=== PATIENT | female | born 1965 | race Caucasian/White ===

== ENCOUNTER 2018-01-10 14:42 | Outpatient (CLI) | payer BC | END 2018-01-10 14:43 | disposition home or self-care (01) | LOC: BICULT 14:42 | PROVIDERS: ATTEND Nurse Practitioner Acute Care | DX: I82.90 Acute embolism and thrombosis of unspecified vein (principal); C50.411 Malignant neoplasm of upper-outer quadrant of right female breast; R60.0 Localized edema; M79.601 Pain in right arm | CPT/HCPCS: 36415; 80053; 82248; 83615; 84100; 84550 ==

== ENCOUNTER 2018-06-14 11:17 | Outpatient (CLI) | payer BC ==
--- NOTE | 2018-06-14 12:25 | RAD ---
PA AND LATERAL CHEST: History: Pneumonia. FINDINGS: Comparison is made with the exam of 09-01-15. The heart size is normal. The lungs are well expanded without focal areas of consolidation, pneumotho races or pleural effusions. There are degenerative changes of the spine. IMPRESSION: No radiographic evidence of acute cardiopulmonary process. POS: [facility]
== END 2018-06-14 11:18 | disposition home or self-care (01) ==
LOC: RAD-FRANK 11:17
PROVIDERS: ATTEND Nurse Practitioner Family
DX: J18.9 Pneumonia, unspecified organism (principal)
CPT/HCPCS: 36415; 71046; 80053; 85025; 85379

== ENCOUNTER 2018-06-23 08:18 | Outpatient (CLI) | payer BC ==
--- NOTE | 2018-06-23 09:27 | CT ---
CT CHEST WITH CONTRAST: HISTORY: Cough. Upper respiratory infection. COMPARISON: Real-time from 06/14/2018. FINDINGS: The lungs are clear. No pneumothorax. No suspicious pulmonary nodule. No pleural effusion. The thyroid is unremarkable. No pericardial effusion. There is mild intrahepatic and extrahepatic biliary dilatation. The common bile duct, at the level o f the pancreatic head, measures 12 mm. No axillary adenopathy. Bilateral breast implants with calcified capsules. No suspicious osteolytic or osteoblastic lesions. No thoracic spine compression fracture. IMPRESSION: 1. No acute intrathoracic abnormality. 2. Mild intrahepatic and extrahepatic biliary dilatation, with common bile duct measuring 12 mm. If clinically warranted, follow-up magnetic resonance cholangiopancreatography recommended. This could reflect reservoir changes from prior cholecystectomy. POS: [facility]
[2018-06-23] MEDS ORDERED: ISOVUE-370 76%-LOCM 1 ML ONE (09:46)
== END 2018-06-23 08:19 | disposition home or self-care (01) ==
LOC: BICCT 08:18
PROVIDERS: ATTEND Nurse Practitioner Family
DX: R05 Cough (principal); J06.9 Acute upper respiratory infection, unspecified; R93.89 Abnormal findings on diagnostic imaging of other specified body structures; K83.9 Disease of biliary tract, unspecified; Z90.49 Acquired absence of other specified parts of digestive tract
CPT/HCPCS: 71260; Q9966

== ENCOUNTER 2018-07-20 14:16 | Outpatient (CLI) | payer BC ==
[~2018-07-20 14:16] MED LIST: Gadobenate Dimeglumine 529 MG/1 ML (20ML VIAL) ONE
--- NOTE | 2018-07-20 16:29 | MRI ---
MRI ABDOMEN WITH AND WITHOUT IV CONTRAST 07/20/18 HISTORY: Chronic constipation. Disorder of bile duct. Esophageal dysphagia, malignant tumor of breast. FINDINGS: The patient is post cholecystectomy. The common duct measures 1 mm in diameter in the pancreatic head . No filling defects are seen to suggest choledocholithiasis. The liver demonstrates diffuse loss of signal on the out of phase images consistent with fatty infilt ration. No hepatic mass is seen. The spleen, pancreas, adrenal glands and left kidney are normal. The re is a tiny cyst in the right kidney and scar in the inferior posterior right renal cortex. No free fluid or lymphadenopathy is noted in the abdomen. There is no evidence of aneurysmal dilatat ion of the abdominal aorta. The bone marrow signal is noted. There are bilateral breast implants. IMPRESSION: 1. Fatty liver. 2. Status post cholecystectomy with dilated common bile duct likely due to reservoir effect. No evidence of choledocholithiasis. 3. Tiny right cyst. POS: [facility]
== END 2018-07-20 14:17 | disposition home or self-care (01) ==
LOC: BICMRI 14:16
PROVIDERS: ATTEND Internal Medicine Gastroenterology
DX: K83.9 Disease of biliary tract, unspecified (principal); R13.19 Other dysphagia; K59.09 Other constipation; C50.919 Malignant neoplasm of unspecified site of unspecified female breast; K76.0 Fatty (change of) liver, not elsewhere classified; N28.1 Cyst of kidney, acquired; Z90.49 Acquired absence of other specified parts of digestive tract
CPT/HCPCS: 74183; 82565; A9577

== ENCOUNTER 2018-09-18 11:17 | Outpatient (CLI) | payer BC ==
--- NOTE | 2018-09-18 12:26 | RAD ---
CHEST TWO VIEWS: HISTORY: Cough. COMPARISON: 06/14/2018 FINDINGS: Heart size is normal. Lungs are clear. No pneumonia, edema, pleural effusion, or other acute proces s. IMPRESSION: 1. Unremarkable chest. 2. No evidence of pneumonia. 3. Stable appearance from prior study. POS: [facility]
== END 2018-09-18 11:18 | disposition home or self-care (01) ==
LOC: RAD-FRANK 11:17
PROVIDERS: ATTEND Nurse Practitioner Family
DX: R91.8 Other nonspecific abnormal finding of lung field (principal); R05 Cough; Z85.3 Personal history of malignant neoplasm of breast; Z87.01 Personal history of pneumonia (recurrent)
CPT/HCPCS: 71046

== ENCOUNTER 2018-11-13 10:27 | Outpatient (CLI) | payer BC ==
--- NOTE | 2018-11-13 12:18 | MRI ---
Exam: MRI cervical spine without contrast HISTORY: Degenerative disc disease.. COMPARISON: None FINDINGS: Appropriate T1 marrow signal intensity of the cervical vertebra. Cervical spine vertebral body heigh t is maintained. No fracture. Straightening of normal cervical lordosis is presumed to be positional. Visualized brain parenchyma, cervical medullary junction, cervical cord and the upper thoracic cord h ave a normal size and signal intensity C2-C3: No significant central canal stenosis or neural foraminal narrowing C3-C4: No significant central canal stenosis or neural foraminal narrowing C4-C5: No significant central canal stenosis. Mild right foraminal narrowing due to uncovertebral hyp ertrophy. Left neural foramen is patent. C5-C6: No significant central canal stenosis or neural foraminal narrowing C6-C7: Central/right paracentral disc osteophyte complex. Mass effect upon the right hemicord, withou t cord hyperintensity. Mild central canal stenosis. Mild bilateral neural foraminal narrowing due to uncovertebral hypertrophy C7-T1: No significant central canal stenosis or neural foraminal narrowing. IMPRESSION: Degenerative disc disease at C6-C7. There is mass effect upon the right hemicord. Mild central canal stenosis. No cord signal abnormality.
== END 2018-11-13 10:28 | disposition home or self-care (01) ==
LOC: TBSIIMAG 10:27
PROVIDERS: ATTEND Neurological Surgery
DX: M50.323 Other cervical disc degeneration at C6-C7 level (principal); M48.02 Spinal stenosis, cervical region
CPT/HCPCS: 72141

== ENCOUNTER 2019-01-03 12:01 | Outpatient (CLI) | payer BC ==
--- NOTE | 2019-01-03 14:15 | ULT ---
RENAL SONOGRAM: 01/03/19 HISTORY: Chronic renal disease. FINDINGS: On today's exam, the right kidney is 10.5 cm. Area of scarring and dystrophic calcification is presen t along the lateral margin of the lower cortex. Small echogenic foci with posterior shadowing are pre sent within nondilated calyces. Left kidney measures up to 10.2 cm, also with small stones scattered throughout nondilated calyces. N o hydronephrosis or solid mass. Urinary bladder is incompletely distended. IMPRESSION: Nonobstructing bilateral renal calculi. POS: [facility]
== END 2019-01-03 12:02 | disposition home or self-care (01) ==
LOC: BICULT 12:01
PROVIDERS: ATTEND Internal Medicine Nephrology
DX: I12.9 Hypertensive chronic kidney disease with stage 1 through stage 4 chronic kidney disease, or unspecified chronic kidney disease (principal); N18.2 Chronic kidney disease, stage 2 (mild); N20.0 Calculus of kidney; Z87.442 Personal history of urinary calculi
CPT/HCPCS: 76770

== ENCOUNTER 2019-02-23 08:38 | Outpatient (CLI) | payer BC ==
--- NOTE | 2019-02-23 09:01 | RAD ---
4 views of the cervical spine: 02/23/2019 COMPARISON: None available HISTORY: Cervical radiculopathy, prior cervical spine surgery FINDINGS: The open-mouth odontoid view demonstrates a normal-appearing dens and C1-2 articulation. Anterior discectomy and fusion hardware is present at C6-7. There is mild adjacent prevertebral soft tissue prominence. There is mild posterior osteophyte at C6-7. There is minimal anterolisthesis of C5 on C6 measuring 2-3 mm. IMPRESSION: Postoperative and degenerative changes within the cervical spine as described above.
== END 2019-02-23 08:39 | disposition home or self-care (01) ==
LOC: TBSIIMAG 08:38
PROVIDERS: ATTEND Neurological Surgery
DX: M47.22 Other spondylosis with radiculopathy, cervical region (principal); Z98.890 Other specified postprocedural states
CPT/HCPCS: 72040

== ENCOUNTER 2019-04-11 13:11 | Outpatient (CLI) | payer BC ==
--- NOTE | 2019-04-11 15:18 | RAD ---
CERVICAL SPINE SERIES 3 VIEWS: Date: 04/11/19 HISTORY: Follow-up surgery. COMPARISON: 02/23/19 study. FINDINGS: Anterior cervical fusion has been performed at the C6-7 level. The remainder of the vertebral bodies and disc spaces are well preserved. IMPRESSION: Stable postop change. POS: [facility]
== END 2019-04-11 13:12 | disposition home or self-care (01) ==
LOC: TBSIIMAG 13:11
PROVIDERS: ATTEND Neurological Surgery
DX: M50.30 Other cervical disc degeneration, unspecified cervical region (principal); Z98.1 Arthrodesis status
CPT/HCPCS: 72040

== ENCOUNTER 2019-05-07 11:58 | Outpatient (CLI) | payer BC ==
--- NOTE | 2019-05-07 13:28 | MRI ---
MRI brain with and without contrast: DATE: 05/07/2019 HISTORY: 53-year-old female with memory loss, headache, and dizziness. TECHNIQUE: Multiplanar, multisequence MRI of the brain obtained pre and post IV injection of gadolinium based co ntrast agent. FINDINGS: There is no obstructive hydrocephalus. There is no midline shift or any other evidence of mass effect . There is no extra-axial fluid collection. There are very mild chronic ischemic white matter changes due to microvascular atherosclerosis. There is otherwise no major intra-axial signal abnormal ity, abnormal enhancement, mass, recent hemorrhage, or restricted diffusion. IMPRESSION: 1) very mild chronic ischemic white matter changes. 2) otherwise negative
== END 2019-05-07 11:59 | disposition home or self-care (01) ==
LOC: SCSMRI 11:58
PROVIDERS: ATTEND Physician Assistant
DX: R41.3 Other amnesia (principal)
CPT/HCPCS: 70553

== ENCOUNTER 2019-05-14 11:22 | Outpatient (CLI) | payer BC ==
--- NOTE | 2019-05-14 14:47 | CT ---
CT ABDOMEN AND PELVIS PERFORMED WITHOUT CONTRAST ENHANCEMENT: Date: 05/14/2019 HISTORY: Right flank pain for 3 months, getting worse. History of lithotripsy, cholecystectomy, and hysterecto my. History of kidney stones. COMPARISON: 12/19/2016 exam. FINDINGS: Within the right lower anterior chest is asymmetric soft tissue density. I am not certain whether thi s is related to breast tissue or some type of subcutaneous mass such as hematoma. Clinical correlatio n is recommended. The lung bases are clear. The liver, spleen, and pancreas regions are unremarkable. Gallbladder has been removed. Right and left adrenal glands are normal. Punctate bilateral lower pole renal calculi are seen with t wo and possibly three tiny calculi on the right and one on the left. No obstruction. No ureteral calc merlyn are seen. No significant periaortic or mesenteric lymphadenopathy. CT of pelvis was performed without contrast enhancement. The appendix is normal. No evidence of adeno prabhakar, mass, or free fluid. IMPRESSION: 1. Increased soft tissue density in the subcutaneous tissue along the right inframammary region. I a m not certain whether this is related to breast tissue or some type of mass. Clinical correlation rec ommended. 2. Punctate nonobstructing bilateral renal calculi. 3. Post cholecystectomy change. 4. Normal appendix. POS: [facility]
== END 2019-05-14 11:23 | disposition home or self-care (01) ==
LOC: CT 11:22
PROVIDERS: ATTEND Urology
DX: N20.0 Calculus of kidney (principal); M79.89 Other specified soft tissue disorders; Z90.49 Acquired absence of other specified parts of digestive tract
CPT/HCPCS: 74176; 81001

== ENCOUNTER 2020-07-09 07:06 | Day surgery (SDC) | payer BC ==
[2020-07-07 14:50] VITALS: BMI 23.6
--- NOTE | 2020-07-09 09:27 | CT ---
Cervical myelogram CT cervical spine with intrathecal contrast HISTORY: Neck pain. Prior surgery. FINDINGS: After explaining the procedure and answering all questions, the lower back was prepped and draped in usual sterile fashion. Sterile technique, buffered local anesthesia, fluoroscopic guidance, and a left posterolateral L2-3 a pproach were used to carefully advance the tip of a 22-gauge spinal needle to the thecal sac. Approximately 8 cc of Isovue 300 and contrast was carefully instilled into the thecal sac under fluor oscopic control. Needle was removed and spot images obtained. Patient tolerated the procedure well and was transferred to CT in good condition for further imaging. There is gentle reversal of the normal kyphotic curvature of the lower cervical spine, apex at the po stoperative C5-6 level. No yoshi-hardware lucency evident. C1-2: Mild osteophytosis. Central canal and neural foramina are patent. C2-3: Mild osteophytosis. Central canal and neural foramina are patent. C3-4: Mild osteophytosis. Central canal and neural foramina are patent. C4-5: Mild osteophytosis. Central canal and neural foramina are patent. C5-6: Postoperative changes. Posterior osteophyte/disc complex slightly effaces the ventral aspect of the thecal sac and spinal cord, flattening spinal cord by approximately 30%. Contrast material/CSF remains behind the spinal cord. Mild bilateral foraminal stenosis. C6-7: Mild osteophytosis. Central canal and neural foramina are patent. C7-T1: Central canal and neural foramina are patent. IMPRESSION : Postoperative and significant degenerative changes limited to the C5-6 level, including mild/moderate compression of the spinal cord and central canal/foraminal stenoses. No evidence of hardware complication.
[2020-07-09 09:51] VITALS: BP 92/61; TEMP 99
[2020-07-09] MEDS ORDERED: Iopamidol-M 300 61% 15 ML VIAL ONE (14:19)
== END 2020-07-09 10:15 | disposition home or self-care (01) ==
LOC: RAD 07:06
PROVIDERS: ATTEND Neurological Surgery
PROC: B02B1ZZ Computerized Tomography (CT Scan) of Spinal Cord using Low Osmolar Contrast (ICD-10-PCS; principal; 2020-07-09)
DX: M50.022 Cervical disc disorder at C5-C6 level with myelopathy (principal); M48.02 Spinal stenosis, cervical region; E78.00 Pure hypercholesterolemia, unspecified; I10 Essential (primary) hypertension; F32.9 Major depressive disorder, single episode, unspecified; F41.9 Anxiety disorder, unspecified; G25.81 Restless legs syndrome; K21.9 Gastro-esophageal reflux disease without esophagitis; F17.210 Nicotine dependence, cigarettes, uncomplicated; Z85.3 Personal history of malignant neoplasm of breast; Z79.899 Other long term (current) drug therapy; Z98.1 Arthrodesis status
CPT/HCPCS: 62302; 72126; Q9967

== ENCOUNTER 2020-08-20 10:48 | Outpatient (CLI) | payer BC ==
[2020-08-20 11:08] LABS: Hemoglobin 9.5 g/dL (12.0-15.5); Mean Corpuscular HGB CONC 31.5 g/dL (32.0-36.0); Mean Corpuscular Hemoglobin 26.8 pg (27.0-33.0); Mean Corpuscular Volume 85.1 fl (81.6-98.3); Mean Platelet Volume 10.5 fl (7.4-10.4); Platelet Count 251 10x3/uL (150-450); Red Blood Cell (RBC) Count 3.55 10x6/uL (3.90-5.03); White Blood Cell (WBC) Count 6.4 10x3/uL (3.5-10.5)
[2020-08-20 11:35] LABS: Anion Gap 15 mmol/L (10-20); BUN (Urea Nitrogen) 41 mg/dL (9.8-20.1); Calc. Creatinine Clearance 0 mL/min (70-130); Calcium 9.4 mg/dL (7.8-10.44); Carbon Dioxide 28 mmol/L (22-29); Chloride 101 mmol/L (98-107); Glucose 79 mg/dL (70-105); Potassium 5.2 mmol/L (3.5-5.1); Sodium 139 mmol/L (136-145)
[2020-08-20 17:51] LABS: SARS-CoV-2 PCR by NAA Not Detected (NotDetected)
== END 2020-08-20 10:49 | disposition home or self-care (01) ==
LOC: LABBT 10:48
PROVIDERS: ATTEND Obstetrics & Gynecology
DX: Z01.818 Encounter for other preprocedural examination (principal); M54.12 Radiculopathy, cervical region; Z20.822 Contact with and (suspected) exposure to COVID-19
CPT/HCPCS: 80048; 85027; 87635; 93005; 93010; U0003; U0005

== ENCOUNTER 2020-08-21 16:55 | Outpatient (CLI) | payer BC ==
[2020-08-22 19:17] LABS: Anion Gap 15 mmol/L (10-20); BUN (Urea Nitrogen) 43 mg/dL (9.8-20.1); Calc. Creatinine Clearance 0 mL/min (70-130); Calcium 8.9 mg/dL (7.8-10.44); Carbon Dioxide 26 mmol/L (22-29); Chloride 102 mmol/L (98-107); Glucose 115 mg/dL (70-105); Sodium 138 mmol/L (136-145)
== END 2020-08-21 16:56 | disposition home or self-care (01) ==
LOC: LABBT 16:55
PROVIDERS: ATTEND Nurse Practitioner Family
DX: Z01.812 Encounter for preprocedural laboratory examination (principal); M54.12 Radiculopathy, cervical region
CPT/HCPCS: 80048

== ENCOUNTER 2020-08-25 06:11 | Observation (INO) | payer BC ==
[2020-08-21 13:52] VITALS: BMI 27.4
[2020-08-25] MEDS ORDERED: Midazolam HCl 2 mg/2 ml Vial ONE (07:40)
[2020-08-25] MEDS ORDERED: Fentanyl 100 MCG/2 ML VIAL ONE ×4 (08:19→11:57)
[2020-08-25] MEDS ORDERED: Glycopyrrolate 0.2 MG/ML 5 ML SYRINGE ONE (09:20)
[2020-08-25] MEDS ORDERED: Rocuronium Bromide 10 MG/ML (10ML VIAL) ONE (09:20)
[2020-08-25] MEDS ORDERED: PHENYLEPHRINE-NS 100 MCG/ML 10 ML SYRINGE ONE (09:20)
[2020-08-25] MEDS ORDERED: Ondansetron PF 4 MG/2 ML Vial ONE (09:20)
[2020-08-25] MEDS ORDERED: Dexamethasone 20 MG/5 ML VIAL ONE (09:20)
[2020-08-25] MEDS ORDERED: PROPOFOL 200 MG/20 ML VIAL ONE (09:20)
[2020-08-25] MEDS ORDERED: Lidocaine 1% PF 5 ML VIAL ONE (09:20)
[2020-08-25] MEDS ORDERED: Ondansetron HCl/PF 4 MG/2 ML Vial IVP PRN (09:49)
[2020-08-25] MEDS ORDERED: HYDROmorphone 2 MG/ML VIAL SLOW IVP PRN (09:49)
[2020-08-25] MEDS ORDERED: Promethazine HCl 25 MG/ML VIAL SLOW IVP PRN (09:49)
[2020-08-25] MEDS ORDERED: Promethazine HCl 25 MG/ML VIAL IM PRN ×2 (09:49→11:00)
[2020-08-25] MEDS ORDERED: SUGAMMADEX SODIUM 200 MG/2 ML VIAL ONE (09:56)
[2020-08-25] MEDS ORDERED: Morphine 2 MG/ML VIAL SLOW IVP PRN (11:00)
[2020-08-25] MEDS ORDERED: Milk Of Magnesia 30 ML UDCUP PO PRN (11:00)
[2020-08-25] MEDS ORDERED: diphenhydrAMINE 25 MG CAP PO PRN (11:00)
[2020-08-25] MEDS ORDERED: diphenhydrAMINE 50 MG/ML VIAL IVP PRN (11:00)
[2020-08-25] MEDS ORDERED: Promethazine 25 MG TAB PO PRN (11:00)
[2020-08-25] MEDS ORDERED: Ondansetron PF 4 MG/2 ML Vial IVP PRN (11:00)
[2020-08-25] MEDS ORDERED: tiZANidine HCl 4 MG TAB PO PRN (11:00)
[2020-08-25] MEDS ORDERED: Promethazine HCl 12.5 MG SUPP PR PRN (11:00)
[2020-08-25] MEDS ORDERED: Morphine 4 MG/ML VIAL SLOW IVP PRN (11:00)
[2020-08-25] MEDS ORDERED: HYDROcodone/Acetaminophen 10/325 mg Tablet PO PRN ×2 (11:00)
[2020-08-25] MEDS ORDERED: Sodium Chloride 0.9% 1,000 ML IV SCH (11:00)
[2020-08-25] MEDS ORDERED: traMADol HCl 50 MG TAB PO PRN ×2 (11:00)
[2020-08-25] MEDS ORDERED: Mag-Al 1200 mg/1200 mg/30 ML UDCUP PO PRN (11:00)
[2020-08-25 12:48] VITALS: BP 123/78; TEMP 98.5
[2020-08-25] MEDS ORDERED: CEFAZOLIN 2 GM in Premix Bag 1 BAG IVPB SCH (16:00)
[2020-08-25] MEDS ORDERED: Albuterol Sulfate 2.5 mg/3 ml Neb NEB PRN (18:49)
[2020-08-25] MEDS ORDERED: traZODone HCl 150 MG TAB PO SCH (21:00)
[2020-08-25] MEDS ORDERED: Montelukast Sodium 10 mg Tablet PO SCH (21:00)
[2020-08-25] MEDS ORDERED: DULoxetine 60 MG CAP PO SCH (21:00)
[2020-08-25] MEDS ORDERED: Gabapentin 300 MG CAP PO SCH (21:00)
[2020-08-26] MEDS ORDERED: Tamsulosin HCl 0.4 MG CAP PO SCH (06:00)
[2020-08-26] MEDS ORDERED: Bupropion 150 MG XL TAB PO SCH (09:00)
[2020-08-26] MEDS ORDERED: Atorvastatin Calcium 40 MG TAB PO SCH (09:00)
== END 2020-08-25 19:00 | disposition home or self-care (01) ==
LOC: SDC 06:11 → SURG B 10:47
PROVIDERS: ADMIT Neurological Surgery; ATTEND Neurological Surgery
PROC: 0RG10A0 Fusion of Cervical Vertebral Joint with Interbody Fusion Device, Anterior Approach, Anterior Column, Open Approach (ICD-10-PCS; principal; 2020-08-25)
PROC: 0RT30ZZ Resection of Cervical Vertebral Disc, Open Approach (ICD-10-PCS; 2020-08-25)
DX: M47.22 Other spondylosis with radiculopathy, cervical region (principal); G89.29 Other chronic pain; I10 Essential (primary) hypertension; E78.5 Hyperlipidemia, unspecified; G25.81 Restless legs syndrome; F17.210 Nicotine dependence, cigarettes, uncomplicated; Z85.3 Personal history of malignant neoplasm of breast; Z79.899 Other long term (current) drug therapy; Z98.1 Arthrodesis status
CPT/HCPCS: 76000; 96374; 96375; C1713; C1776; G0378; J0690; J1100; J2250; J2270; J2405; J2704; J3010; J3370

== ENCOUNTER 2021-04-14 10:49 | Outpatient (CLI) | payer BC | END 2021-04-14 10:50 | disposition home or self-care (01) | LOC: BICRAD 10:49 | PROVIDERS: ATTEND Neurological Surgery | DX: M47.22 Other spondylosis with radiculopathy, cervical region (principal); Z98.890 Other specified postprocedural states | CPT/HCPCS: 72040 ==

== ENCOUNTER 2021-04-16 13:17 | Emergency (ER) | payer BC ==
[2021-04-16 13:57] LABS: #Eosinphils 0.2 thou/uL (0.0-0.7); #Lymphocytes 2.2 thou/uL (1.20-3.40); #Monocytes 0.5 thou/uL (0.11-0.59); #Neutrophils 3.7 thou/uL (1.40-6.50); %Basophils 0.5 % (0.0-1.0); %Eosinophils 3.3 % (0.0-10.0); %Lymphocytes 33.3 % (21.0-51.0); %Monocytes 7.8 % (0.0-10.0); %Neutrophils 55.2 % (42.0-75.0); Hemoglobin 9.1 g/dL (12.0-16.0); Mean Corpuscular HGB CONC 34.4 g/dL (32.0-36.0); Mean Corpuscular Volume 81.4 fL (78.0-98.0); Platelet Count 262 thou/uL (130-400); RBC Distribution Width 12.8 % (11.5-14.5); Red Blood Cell (RBC) Count 3.25 mill/uL (4.20-5.40); White Blood Cell (WBC) Count 6.7 thou/uL (4.8-10.8)
[2021-04-16 14:19] LABS: ALT (SGPT) 19 U/L (8-55); AST (SGOT) 30 U/L (5-34); Alkaline Phosphatase 83 U/L (40-110); Anion Gap 14 mmol/L (10-20); BUN (Urea Nitrogen) 63 mg/dL (9.8-20.1); Bilirubin, Total 0.3 mg/dL (0.2-1.2); Calc. Creatinine Clearance 0 mL/min (70-130); Calcium 9.3 mg/dL (7.8-10.44); Carbon Dioxide 26 mmol/L (22-29); Chloride 102 mmol/L (98-107); Globulin 3.9 g/dL (2.4-3.5); Glucose 102 mg/dL (70-105); Potassium 4.8 mmol/L (3.5-5.1); Protein, Total 7.9 g/dL (6.0-8.3); Sodium 137 mmol/L (136-145)
[2021-04-16] MEDS ORDERED: cefTRIAXone\\ROCEPHIN 1 GM VIAL ONE (17:16)
== END 2021-04-16 17:41 | disposition left against medical advice (07) ==
LOC: ERS 13:17
DX: J18.9 Pneumonia, unspecified organism (principal); I95.9 Hypotension, unspecified; I12.9 Hypertensive chronic kidney disease with stage 1 through stage 4 chronic kidney disease, or unspecified chronic kidney disease; N18.9 Chronic kidney disease, unspecified; E78.5 Hyperlipidemia, unspecified; F17.210 Nicotine dependence, cigarettes, uncomplicated; Z85.3 Personal history of malignant neoplasm of breast
CPT/HCPCS: 71250; 74177; 80053; 85025; 93005; J0696

== ENCOUNTER 2022-06-29 18:53 | Emergency (ER) | payer BC ==
[2022-06-29] MEDS ORDERED: Ondansetron PF 4 MG/2 ML Vial ONE (20:18)
[2022-06-29] MEDS ORDERED: Haloperidol Lactate 5 MG/ML VIAL ONE (20:18)
[2022-06-29] MEDS ORDERED: Dicyclomine 20 MG/2 ML VIAL ONE (20:18)
[2022-06-29 20:31] LABS: #Lymphocytes 1.4 thou/uL (1.20-3.40); #Monocytes 0.5 thou/uL (0.11-0.59); #Neutrophils 12.1 thou/uL (1.40-6.50); %Eosinophils 0.1 % (0.0-10.0); %Monocytes 3.7 % (0.0-10.0); %Neutrophils 86.1 % (42.0-75.0); Hemoglobin 12.2 g/dL (12.0-16.0); Mean Corpuscular HGB CONC 33.1 g/dL (32.0-36.0); Mean Corpuscular Hemoglobin 27.5 pg (27.0-31.0); Mean Corpuscular Volume 83.2 fl (78.0-98.0); Mean Platelet Volume 8.1 fL (7.4-10.4); Platelet Count 312 10x3/uL (130-400); Red Blood Cell (RBC) Count 4.44 mill/uL (4.20-5.40)
[2022-06-29 20:40] LABS: BHCG - Serum POSITIVE (NEGATIVE); Pregs Control Background? CLEAR/WHITE (CLR/WHITE); Pregs Control Bar Appear? YES (CONTROL BAR)
[2022-06-29] MEDS ORDERED: LORazepam 2 MG/ML SYR.(CARPUJECT) ONE (20:49)
[2022-06-29 20:51] LABS: ALT (SGPT) 9 U/L (8-55); AST (SGOT) 23 U/L (5-34); Alkaline Phosphatase 119 U/L (40-110); Anion Gap 14 mmol/L (10-20); BUN (Urea Nitrogen) 10 mg/dL (9.8-20.1); Bilirubin, Total 0.8 mg/dL (0.2-1.2); Calc. Creatinine Clearance 0 mL/min (70-130); Calcium 9.7 mg/dL (7.8-10.44); Carbon Dioxide 24 mmol/L (22-29); Chloride 102 mmol/L (98-107); Estimated GFR 83; Globulin 3.8 g/dL (2.4-3.5); Glucose 99 mg/dL (70-105); Potassium 2.9 mmol/L (3.5-5.1); Protein, Total 7.8 g/dL (6.0-8.3); Sodium 137 mmol/L (136-145)
[2022-06-29 21:04] LABS: Lipase 1922 U/L (8-78)
== END 2022-06-29 22:35 | disposition left against medical advice (07) ==
LOC: ERS 18:53
DX: K85.90 Acute pancreatitis without necrosis or infection, unspecified (principal)
CPT/HCPCS: 36415; 80053; 83690; 84703; 85025; 93005; 96372; 96374; 96375; J1630; J2060; J2405

== ENCOUNTER 2022-10-25 14:02 | Outpatient (CLI) | payer BC | END 2022-10-25 14:03 | disposition home or self-care (01) | LOC: RAD 14:02 | PROVIDERS: ATTEND Physician Assistant Medical | DX: C50.912 Malignant neoplasm of unspecified site of left female breast (principal); R10.13 Epigastric pain; R13.19 Other dysphagia; K59.03 Drug induced constipation; K85.90 Acute pancreatitis without necrosis or infection, unspecified; K83.8 Other specified diseases of biliary tract; R06.89 Other abnormalities of breathing; D64.9 Anemia, unspecified; Z86.010 Personal history of colon polyps | CPT/HCPCS: 71046 ==

== ENCOUNTER 2022-10-27 17:45 | Inpatient (IN) | payer BC ==
[2022-10-27 18:19] LABS: #Eosinphils 0.2 thou/uL (0.0-0.7); #Monocytes 0.6 thou/uL (0.11-0.59); #Neutrophils 4.7 thou/uL (1.40-6.50); %Basophils 0.5 % (0.0-1.0); %Eosinophils 2.8 % (0.0-10.0); %Lymphocytes 31.4 % (21.0-51.0); %Monocytes 6.8 % (0.0-10.0); %Neutrophils 57.9 % (42.0-75.0); Mean Corpuscular HGB CONC 31.5 g/dL (32.0-36.0); Mean Corpuscular Volume 89.1 fl (78.0-98.0); Platelet Count 239 10x3/uL (130-400); RBC Distribution Width 16.3 % (11.5-14.5); Red Blood Cell (RBC) Count 3.21 mill/uL (4.20-5.40); White Blood Cell (WBC) Count 8.1 10x3/uL (4.8-10.8)
[2022-10-27 18:34] LABS: ALT (SGPT) 16 U/L (8-55); AST (SGOT) 21 U/L (5-34); Alkaline Phosphatase 128 U/L (40-110); Anion Gap 16 mmol/L (10-20); BUN (Urea Nitrogen) 72 mg/dL (9.8-20.1); Bilirubin, Total 0.3 mg/dL (0.2-1.2); CK (CPK) 390 U/L (29-168); Calc. Creatinine Clearance 0 mL/min (70-130); Calcium 8.9 mg/dL (7.8-10.44); Carbon Dioxide 17 mmol/L (22-29); Chloride 110 mmol/L (98-107); Estimated GFR 17; Globulin 3.4 g/dL (2.4-3.5); Glucose 152 mg/dL (70-105); Protein, Total 7.4 g/dL (6.0-8.3); Sodium 137 mmol/L (136-145)
[2022-10-27 18:42] LABS: Acetaminophen Less than 10 mcg/mL (10.0-30.0); Alcohol Less than 10.0 mg/dL (Less than 10); Magnesium 1.4 mg/dL (1.6-2.6); Potassium 6.1 mmol/L (3.5-5.1); Salicylate Less than 8.0 mg/dL (15.0-30.0)
[2022-10-27 18:49] LABS: INR-International Normal Ratio 1.1; Prothrombin Time 14.3 sec (12.0-14.7)
[2022-10-27 18:50] LABS: PTT 28.3 sec (22.9-36.1)
[2022-10-27] MEDS ORDERED: Magnesium 2 GM/50 ML BAG (IN WATER) ONE (19:54)
[2022-10-27] MEDS ORDERED: Dextrose 50% Abboject 50 ML SYRINGE ONE (19:56)
[2022-10-27 21:24] LABS: Bacteria/HPF None Seen HPF (None Seen); Bilirubin Negative (Negative); Blood, Urine Negative (Negative); CAUTI Indications for Culture Pelvic or flank pain; Clarity Clear (Clear); Glucose, Urine (Dipstick) Normal (Negative); Ketone, Urine Negative (Negative); Leukocyte 75 Leu/uL (Negative); Nitrite Negative (Negative); Protein, Urine (Dipstick) 20 mg/dL (Neg-Trace); RBC/HPF 0-3 HPF (0-3); Specific Gravity, Urine 1.016 (1.002-1.036); Squamous Epithelial 0-3 HPF (0-3); Urobilinogen Normal mg/dL (Less than 2); WBC/HPF 0-3 HPF (0-3)
[2022-10-27 21:25] LABS: Urine Culture Reflex No No
[2022-10-27 21:26] VITALS: BMI 33.5
[2022-10-27 21:26] LABS: Amphetamine Not Detected (NotDetected); Barbiturates Screen Not Detected (NotDetected); Benzodiazepine Screen Not Detected (NotDetected); Cocaine Metabolite Screen Not Detected (NotDetected); Methadone Detected (NotDetected); Methamphetamine Not Detected (NotDetected); Opiate Screen Detected (NotDetected); Oxycodone Screen Not Detected (NotDetected); Phencyclidine (PCP) Not Detected (NotDetected); THC/Cannabinoid Screen Not Detected (NotDetected); Tricyclic Screen Not Detected (NotDetected)
[2022-10-27 21:28] VITALS: BP 131/70; TEMP 97.7
[2022-10-27] MEDS ORDERED: Acetaminophen 650 MG Suppository PR PRN (21:54)
[2022-10-27] MEDS ORDERED: Acetaminophen 325 MG TAB PO PRN ×2 (21:54→22:00)
[2022-10-27] MEDS ORDERED: Metoclopramide HCl 10 MG/2 ML VIAL IVP PRN (21:57)
[2022-10-27] MEDS ORDERED: HYDROcodone/Acetaminophen 10/325 mg Tablet PO PRN (21:59)
[2022-10-27] MEDS ORDERED: Ondansetron PF 4 MG/2 ML Vial IVP PRN (22:00)
[2022-10-27] MEDS ORDERED: Sodium Chloride 0.9% 1,000 ML IV SCH ×2 (22:00)
[2022-10-27] MEDS ORDERED: Ondansetron ODT 4 MG TAB SL PRN (22:00)
[2022-10-27] MEDS ORDERED: Nicotine 7 MG PATCH TD PRN (22:02)
[2022-10-27] MEDS ORDERED: hydrALAZINE 20 MG/ML VIAL SLOW IVP PRN (22:13)
[2022-10-28] MEDS ORDERED: Gabapentin 300 MG CAP PO SCH ×2 (09:00→21:00)
[2022-10-28] MEDS ORDERED: DULoxetine 60 MG CAP PO SCH (09:00)
[2022-10-28] MEDS ORDERED: METHadone HCl 10 MG TAB PO SCH (09:00)
[2022-10-28] MEDS ORDERED: Mirtazapine 15 MG Soltab PO SCH (21:00)
== END 2022-10-27 22:16 | disposition left against medical advice (07) | DRG 684 ==
LOC: ERS 17:45 → T4-B 19:58
PROVIDERS: ADMIT Student in an Organized Health Care Education/Training Program; ATTEND Student in an Organized Health Care Education/Training Program
DX: N17.9 Acute kidney failure, unspecified (principal); E86.0 Dehydration; I12.9 Hypertensive chronic kidney disease with stage 1 through stage 4 chronic kidney disease, or unspecified chronic kidney disease; N18.9 Chronic kidney disease, unspecified; E78.5 Hyperlipidemia, unspecified; E87.5 Hyperkalemia; F41.9 Anxiety disorder, unspecified; F31.9 Bipolar disorder, unspecified; G89.4 Chronic pain syndrome; F17.210 Nicotine dependence, cigarettes, uncomplicated; D63.1 Anemia in chronic kidney disease; E83.42 Hypomagnesemia; Z71.6 Tobacco abuse counseling; Z90.710 Acquired absence of both cervix and uterus; Z90.49 Acquired absence of other specified parts of digestive tract; Z98.890 Other specified postprocedural states; Z79.51 Long term (current) use of inhaled steroids; Z79.899 Other long term (current) drug therapy; Z90.13 Acquired absence of bilateral breasts and nipples
CPT/HCPCS: 36415; 36416; 71045; 71046; 76770; 80053; 80306; 80307; 81001; 82550; 83605; 83690; 83735; 83880; 84443; 84484; 85025; 85610; 85730; 93005; 94644; 94760; 96361; 96365; 96375; J0612; J1815; J3475; J7611; J7999

== ENCOUNTER 2022-11-17 09:23 | Outpatient (CLI) | payer BC ==
[2022-11-17] MEDS ORDERED: Magnevist 469MG/ML 20 ML VIAL ONE (11:48)
== END 2022-11-17 09:24 | disposition home or self-care (01) ==
LOC: MRI 09:23
PROVIDERS: ATTEND Physician Assistant Medical
DX: R10.13 Epigastric pain (principal); R13.19 Other dysphagia; K59.03 Drug induced constipation; K85.90 Acute pancreatitis without necrosis or infection, unspecified; K83.8 Other specified diseases of biliary tract; R06.89 Other abnormalities of breathing; D64.9 Anemia, unspecified; K31.819 Angiodysplasia of stomach and duodenum without bleeding; K76.0 Fatty (change of) liver, not elsewhere classified; Z86.010 Personal history of colon polyps; Z90.49 Acquired absence of other specified parts of digestive tract
CPT/HCPCS: 74183